=== PATIENT | male | born 1955 | race Caucasian/White ===

== ENCOUNTER 2019-10-11 15:26 | Inpatient (IN) ==
[2019-10-11] MEDS ORDERED: metroNIDAZOLE INJ 500 MG in PREMIX 1 EACH IV STA (16:05)
[2019-10-11] MEDS ORDERED: ONDANSETRON 4 MG/2 ML VIAL IV STA (16:05)
[2019-10-11] MEDS ORDERED: SODIUM CHLORIDE 0.9% 1,000 ML IV STA (16:05)
[2019-10-11] MEDS ORDERED: PANTOPRAZOLE 40 MG VIAL IV STA (16:05)
[2019-10-11] MEDS ORDERED: METOCLOPRAMIDE 10 MG/2 ML VIAL IV STA (16:05)
[2019-10-11] MEDS ORDERED: DICYCLOMINE 20 MG/2 ML AMP IM ONE (16:05)
[2019-10-11 16:14] LABS: Basophils % 0.1 % (0.0-0.8); Hematocrit 46.8 VOL% (42.0-52.0); Hemoglobin 15.8 GM/DL (14.0-18.0); Immature Granulocytes % 3.5 %; Immature Granulocytes Absolute 0.93 #; Lymphocytes # 1.2 10*3/uL (1.4-4.0); Lymphocytes % 4.3 % (21.2-54.2); Mean Corpuscular HGB Conc 33.8 GM/DL (32-36); Mean Corpuscular Volume 90.7 FL (87-102); Mean Platelet Volume 9.3 FL (9.6-12.0); Neutrophils % 83.1 % (38.7-73.9); Platelet Count 333 T/CUMM (130-400); Red Blood Count 5.16 MC/CUMM (3.8-5.5); Red Cell Distribution Width 13.3 % (9.3-17.3); White Blood Count 26.9 T/CUMM (4-12)
[2019-10-11 16:23] LABS: INR 1.2; PT Patient Result 12.2 SECS (9.8-11.9); Partial Thromboplastin Time 29.6 SECS (23.9-33.8)
[2019-10-11] MEDS ORDERED: cefTRIAXone 2,000 MG in SODIUM CHLORIDE 0.9% 100 ML IV ONE (16:33)
[2019-10-11] MEDS ORDERED: LEVOFLOXACIN INJ 750 MG in PREMIX 1 EACH IV STA (16:34)
[2019-10-11 16:35] LABS: Band Neutrophils 2 % (0-10); Lymphocytes 6 % (20-55); Platelet Estimate Adequate; Segmented Neutrophils 82 % (50-85); Total Cells Counted 100
[2019-10-11 16:37] LABS: Apearance,Urine CLEAR (Clear); Bilirubin,Urine Small mg/dL (Negative); Blood, Urine Negative (Negative); Glucose,Urine (UA) Negative (Negative); Ketones,Urine 20 mg/dL (Negative); Mucus,Urine Many /LPF (Occasional); Nitrite,Urine Negative (Negative); Protein,Urine 100 MG/DL; RBC,Urine 13 /HPF (0-4); Squamous Epithelial Cell,Urine Occasional /HPF (0-10); Urine Color Yellow (Yellow); Urine Specific Gravity 1.035 (1.001-1.035); WBC,Urine 4 /HPF (0-6)
[2019-10-11 16:53] LABS: Alanine Aminotransferase 36 U/L (16-61); Albumin 2.6 G/DL (3.4-5.0); Alkaline Phosphatase 152 U/L (45-117); Amylase 20 U/L (25-115); Aspartate Amino Transferase 29 U/L (0-37); Blood Urea Nitrogen 25 MG/DL (7-18); Calcium 8.7 MG/DL (8.5-10.1); Estimated Glom Filtration Rate 59 ML/MIN; Glucose 135 MG/DL (74-106); Osmolality,Calculated 267.7 MOS/KG (273-304); Total Protein 7.7 G/DL (6.4-8.3); Troponin I < 0.015 NG/ML (0.00-0.045)
[2019-10-11] MEDS ORDERED: GLUCAGON 1 MG VIAL IM PRN (18:00)
[2019-10-11] MEDS ORDERED: DEXTROSE 10% 250 ML BAG IV PRN (18:00)
[2019-10-11] MEDS ORDERED: ONDANSETRON 4 MG/2 ML VIAL IV PRN (18:00)
[2019-10-11] MEDS ORDERED: MORPHINE 4 MG/1 ML VIAL IV PRN (18:00)
[2019-10-11] MEDS ORDERED: MAGNESIUM SULF RIDER 4 GM in PREMIX 1 EACH IV PRN (18:03)
[2019-10-11] MEDS ORDERED: MAGNESIUM SULF RIDER 2 GM in PREMIX 1 EACH IV PRN (18:03)
[2019-10-11] MEDS ORDERED: diphenhydrAMINE 50 MG/1 ML VIAL ONE (18:28)
[2019-10-11] MEDS ORDERED: methylPREDNISolone SOD SUC 125 MG/2 ML VIAL ONE (18:28)
[2019-10-11] MEDS ORDERED: FAMOTIDINE 20 MG/2 ML VIAL IV ONE (18:29)
[2019-10-11] MEDS ORDERED: diphenhydrAMINE 50 MG/1 ML VIAL IV STA (18:39)
[2019-10-11] MEDS ORDERED: FAMOTIDINE 20 MG/2 ML VIAL IV STA (18:39)
[2019-10-11] MEDS ORDERED: methylPREDNISolone SOD SUC 125 MG/2 ML VIAL IV STA (18:40)
[2019-10-11] MEDS: SODIUM CHLORIDE 0.9% 1,000 ML IV SCH (22:40)
[2019-10-11] MEDS: ENOXAPARIN 40 MG/0.4 ML SYRINGE SUBCUT SCH (22:40)
[2019-10-11] MEDS: VANCOMYCIN 50 MG/ML 60 ML/BOTTLE PO SCH (23:59)
[2019-10-12 04:50] LABS: Basophils # 0.1 10*3/uL (0.0-0.2); Basophils % 0.7 % (0.0-0.8); Hematocrit 41.2 VOL% (42.0-52.0); Hemoglobin 14.3 GM/DL (14.0-18.0); Immature Granulocytes % 1.9 %; Immature Granulocytes Absolute 0.36 #; Lymphocytes # 0.8 10*3/uL (1.4-4.0); Lymphocytes % 3.9 % (21.2-54.2); Mean Corpuscular HGB Conc 34.7 GM/DL (32-36); Mean Corpuscular Volume 88.6 FL (87-102); Mean Platelet Volume 9.5 FL (9.6-12.0); Monocytes % 3.5 % (1.7-12.7); Platelet Count 279 T/CUMM (130-400); Red Blood Count 4.65 MC/CUMM (3.8-5.5); Red Cell Distribution Width 13.3 % (9.3-17.3); White Blood Count 19.2 T/CUMM (4-12)
[2019-10-12 05:14] LABS: Albumin 2.3 G/DL (3.4-5.0); Bilirubin,Total 0.7 MG/DL (0.2-1.0); Calcium 7.9 MG/DL (8.5-10.1); Osmolality,Calculated 272.4 MOS/KG (273-304); Risk Ratio 7.63; Thyroid Stimulating Hormone 0.389 uIU/ml (0.358-3.74); Total Protein 5.9 G/DL (6.4-8.3); VLDL CHOLESTEROL 42.8 MG/DL
[2019-10-12 05:32] LABS: Band Neutrophils 1 % (0-10); Lymphocytes 4 % (20-55); Platelet Estimate Adequate; Segmented Neutrophils 91 % (50-85); Total Cells Counted 100
[2019-10-12] MEDS: VANCOMYCIN 50 MG/ML 60 ML/BOTTLE PO SCH ×4 (05:54→23:27)
[2019-10-12] MEDS: SODIUM CHLORIDE 0.9% 1,000 ML IV SCH ×3 (06:53→22:37)
[2019-10-12] MEDS: CETIRIZINE 10 MG TABLET PO SCH (09:33)
[2019-10-12] MEDS: LOSARTAN 25 MG TABLET PO SCH (09:33)
[2019-10-12] MEDS: PANTOPRAZOLE 40 MG TABLET PO SCH (09:33)
[2019-10-12] MEDS: MONTELUKAST 10 MG TABLET PO SCH (09:33)
[2019-10-12] MEDS: ZALEPLON 5 MG CAPSULE PO SCH (21:15)
[2019-10-12] MEDS: cloNIDine 0.1 MG TABLET PO PRN (21:15)
[2019-10-12] MEDS: ENOXAPARIN 40 MG/0.4 ML SYRINGE SUBCUT SCH (21:16)
[2019-10-12] MEDS: ACETAMINOPHEN 325 MG TABLET PO PRN (23:26)
[2019-10-13] MEDS: SODIUM CHLORIDE 0.9% 1,000 ML IV SCH ×3 (02:16→20:32)
[2019-10-13] MEDS: ACETAMINOPHEN 325 MG TABLET PO PRN ×3 (04:05→21:03)
[2019-10-13 05:33] LABS: Basophils # 0.1 10*3/uL (0.0-0.2); Basophils % 0.5 % (0.0-0.8); Hemoglobin 13.7 GM/DL (14.0-18.0); Immature Granulocytes % 1.6 %; Lymphocytes # 0.9 10*3/uL (1.4-4.0); Lymphocytes % 4.9 % (21.2-54.2); Mean Corpuscular HGB Conc 34.3 GM/DL (32-36); Mean Corpuscular Volume 89.1 FL (87-102); Mean Platelet Volume 9.1 FL (9.6-12.0); Monocytes % 9.2 % (1.7-12.7); Neutrophils % 83.8 % (38.7-73.9); Platelet Count 308 T/CUMM (130-400); Red Blood Count 4.49 MC/CUMM (3.8-5.5); Red Cell Distribution Width 13.5 % (9.3-17.3); White Blood Count 18.8 T/CUMM (4-12)
[2019-10-13] MEDS: VANCOMYCIN 50 MG/ML 60 ML/BOTTLE PO SCH ×3 (05:37→18:35)
[2019-10-13 05:47] LABS: Bilirubin,Total 1.7 MG/DL (0.2-1.0); Calcium 7.8 MG/DL (8.5-10.1); Osmolality,Calculated 280.7 MOS/KG (273-304); Total Protein 5.8 G/DL (6.4-8.3)
[2019-10-13 06:19] LABS: Band Neutrophils 2 % (0-10); Eosinophils 1 % (0-10); Lymphocytes 8 % (20-55); Platelet Estimate Adequate; Segmented Neutrophils 81 % (50-85); Total Cells Counted 100
[2019-10-13] MEDS ORDERED: SIMETHICONE CHEW 125 MG TABLET PO PRN (08:36)
[2019-10-13] MEDS: LOSARTAN 25 MG TABLET PO SCH (08:58)
[2019-10-13] MEDS: CETIRIZINE 10 MG TABLET PO SCH (09:08)
[2019-10-13] MEDS: MONTELUKAST 10 MG TABLET PO SCH (09:08)
[2019-10-13] MEDS: cloNIDine 0.1 MG TABLET PO PRN (09:08)
[2019-10-13] MEDS: PANTOPRAZOLE 40 MG TABLET PO SCH (09:08)
[2019-10-13] MEDS ORDERED: DICYCLOMINE 20 MG/2 ML AMP IM ONE (09:25)
[2019-10-13] MEDS: POTASSIUM CHLORIDE 20 MEQ TABLET PO PRN ×3 (12:33→16:28)
[2019-10-13] MEDS ORDERED: cloNIDine 0.1 MG TABLET PO PRN (12:54)
[2019-10-13] MEDS ORDERED: DICYCLOMINE 20 MG/2 ML AMP IM PRN (14:50)
[2019-10-13] MEDS: ZALEPLON 5 MG CAPSULE PO SCH (21:03)
[2019-10-13] MEDS: ENOXAPARIN 40 MG/0.4 ML SYRINGE SUBCUT SCH (21:04)
[2019-10-13] MEDS: cloNIDine 0.1 MG TABLET PO SCH (21:04)
[2019-10-14] MEDS: VANCOMYCIN 50 MG/ML 60 ML/BOTTLE PO SCH ×5 (01:14→23:34)
[2019-10-14] MEDS: ACETAMINOPHEN 325 MG TABLET PO PRN ×4 (01:14→21:59)
[2019-10-14] MEDS: SODIUM CHLORIDE 0.9% 1,000 ML IV SCH ×2 (05:53→15:37)
[2019-10-14 06:10] LABS: Basophils # 0.1 10*3/uL (0.0-0.2); Basophils % 0.4 % (0.0-0.8); Eosinophils # 0.1 10*3/uL (0.0-0.87); Eosinophils % 0.4 % (0.00-10.9); Hematocrit 40.5 VOL% (42.0-52.0); Hemoglobin 13.6 GM/DL (14.0-18.0); Immature Granulocytes % 2.3 %; Immature Granulocytes Absolute 0.31 #; Lymphocytes # 0.9 10*3/uL (1.4-4.0); Lymphocytes % 6.7 % (21.2-54.2); Mean Corpuscular HGB Conc 33.6 GM/DL (32-36); Mean Corpuscular Volume 90.4 FL (87-102); Mean Platelet Volume 9.4 FL (9.6-12.0); Monocytes % 11.6 % (1.7-12.7); Neutrophils % 78.6 % (38.7-73.9); Platelet Count 314 T/CUMM (130-400); Red Blood Count 4.48 MC/CUMM (3.8-5.5); Red Cell Distribution Width 13.8 % (9.3-17.3); White Blood Count 13.5 T/CUMM (4-12)
[2019-10-14 06:44] LABS: Bilirubin,Total 3.3 MG/DL (0.2-1.0); Calcium 7.9 MG/DL (8.5-10.1); Osmolality,Calculated 277.7 MOS/KG (273-304); Total Protein 5.8 G/DL (6.4-8.3)
[2019-10-14] MEDS: MONTELUKAST 10 MG TABLET PO SCH (08:27)
[2019-10-14] MEDS: PANTOPRAZOLE 40 MG TABLET PO SCH (08:28)
[2019-10-14] MEDS: CETIRIZINE 10 MG TABLET PO SCH (08:28)
[2019-10-14] MEDS: cloNIDine 0.1 MG TABLET PO SCH ×2 (08:28→22:00)
[2019-10-14] MEDS: LOSARTAN 25 MG TABLET PO SCH (08:28)
[2019-10-14 11:51] LABS: Band Neutrophils 4 % (0-10); Lymphocytes 8 % (20-55); Segmented Neutrophils 76 % (50-85); Total Cells Counted 100
[2019-10-14 11:52] LABS: Platelet Estimate Normal; Polychromasia Slight
[2019-10-14] MEDS: DICYCLOMINE 10 MG CAPSULE PO PRN ×2 (14:18→21:58)
[2019-10-14] MEDS: ZALEPLON 5 MG CAPSULE PO SCH (21:58)
[2019-10-14] MEDS: ENOXAPARIN 40 MG/0.4 ML SYRINGE SUBCUT SCH (21:58)
[2019-10-15 03:41] LABS: Basophils # 0.1 10*3/uL (0.0-0.2); Basophils % 0.6 % (0.0-0.8); Eosinophils # 0.2 10*3/uL (0.0-0.87); Eosinophils % 2.2 % (0.00-10.9); Hematocrit 38.8 VOL% (42.0-52.0); Immature Granulocytes % 2.8 %; Lymphocytes # 1.3 10*3/uL (1.4-4.0); Lymphocytes % 12.1 % (21.2-54.2); Mean Corpuscular HGB Conc 33.5 GM/DL (32-36); Mean Corpuscular Volume 91.5 FL (87-102); Mean Platelet Volume 9.2 FL (9.6-12.0); Monocytes % 14.8 % (1.7-12.7); Neutrophils % 67.5 % (38.7-73.9); Platelet Count 309 T/CUMM (130-400); Red Blood Count 4.24 MC/CUMM (3.8-5.5); Red Cell Distribution Width 13.9 % (9.3-17.3); White Blood Count 10.6 T/CUMM (4-12)
[2019-10-15 04:03] LABS: Albumin 1.9 G/DL (3.4-5.0); Bilirubin,Total 1.8 MG/DL (0.2-1.0); Calcium 7.7 MG/DL (8.5-10.1); Total Protein 5.4 G/DL (6.4-8.3)
[2019-10-15 05:04] LABS: Band Neutrophils 2 % (0-10); Eosinophils 6 % (0-10); Lymphocytes 13 % (20-55); Segmented Neutrophils 68 % (50-85)
[2019-10-15 05:05] LABS: Platelet Estimate Normal; Total Cells Counted 100
[2019-10-15] MEDS: VANCOMYCIN 50 MG/ML 60 ML/BOTTLE PO SCH ×3 (05:35→19:51)
[2019-10-15] MEDS: MONTELUKAST 10 MG TABLET PO SCH (08:24)
[2019-10-15] MEDS: cloNIDine 0.1 MG TABLET PO SCH ×2 (08:24→21:09)
[2019-10-15] MEDS: CETIRIZINE 10 MG TABLET PO SCH (08:24)
[2019-10-15] MEDS: LOSARTAN 25 MG TABLET PO SCH (08:24)
[2019-10-15] MEDS: PANTOPRAZOLE 40 MG TABLET PO SCH (08:24)
[2019-10-15] MEDS: DICYCLOMINE 10 MG CAPSULE PO PRN ×2 (08:35→21:10)
[2019-10-15] MEDS: ZALEPLON 5 MG CAPSULE PO SCH (21:09)
[2019-10-15] MEDS: ACETAMINOPHEN 325 MG TABLET PO PRN (21:09)
[2019-10-15] MEDS: ENOXAPARIN 40 MG/0.4 ML SYRINGE SUBCUT SCH (21:10)
[2019-10-16] MEDS: VANCOMYCIN 50 MG/ML 60 ML/BOTTLE PO SCH ×2 (00:48→06:14)
[2019-10-16 05:41] LABS: Basophils # 0.1 10*3/uL (0.0-0.2); Eosinophils # 0.3 10*3/uL (0.0-0.87); Eosinophils % 3.8 % (0.00-10.9); Hematocrit 37.8 VOL% (42.0-52.0); Hemoglobin 12.8 GM/DL (14.0-18.0); Immature Granulocytes % 3.8 %; Immature Granulocytes Absolute 0.33 #; Lymphocytes # 1.2 10*3/uL (1.4-4.0); Lymphocytes % 14.1 % (21.2-54.2); Mean Corpuscular HGB Conc 33.9 GM/DL (32-36); Mean Corpuscular Volume 90.6 FL (87-102); Mean Platelet Volume 9.1 FL (9.6-12.0); Monocytes % 13.1 % (1.7-12.7); Neutrophils % 64.2 % (38.7-73.9); Platelet Count 379 T/CUMM (130-400); Red Blood Count 4.17 MC/CUMM (3.8-5.5); Red Cell Distribution Width 13.7 % (9.3-17.3); White Blood Count 8.8 T/CUMM (4-12)
[2019-10-16 06:04] LABS: Albumin 1.8 G/DL (3.4-5.0); Bilirubin,Total 1.4 MG/DL (0.2-1.0); Calcium 7.8 MG/DL (8.5-10.1); Osmolality,Calculated 269.1 MOS/KG (273-304); Total Protein 5.2 G/DL (6.4-8.3)
[2019-10-16 06:10] LABS: Band Neutrophils 2 % (0-10); Eosinophils 5 % (0-10); Hypochromasia 1+; Lymphocytes 8 % (20-55); Platelet Estimate Adequate; Segmented Neutrophils 78 % (50-85); Total Cells Counted 100
[2019-10-16] MEDS: POTASSIUM CHLORIDE 20 MEQ TABLET PO PRN ×2 (07:50→10:17)
[2019-10-16 08:43] VITALS: BP 134/71
[2019-10-16] MEDS: SODIUM CHLORIDE 0.9% 1,000 ML IV SCH ×2 (09:56→09:57)
[2019-10-16] MEDS: LOSARTAN 25 MG TABLET PO SCH (10:16)
[2019-10-16] MEDS: cloNIDine 0.1 MG TABLET PO SCH (10:16)
[2019-10-16] MEDS: MONTELUKAST 10 MG TABLET PO SCH (10:17)
[2019-10-16] MEDS: PANTOPRAZOLE 40 MG TABLET PO SCH (10:17)
[2019-10-16] MEDS: CETIRIZINE 10 MG TABLET PO SCH (10:17)
== END 2019-10-16 11:57 | disposition home or self-care (01) | DRG 372 ==
LOC: N.EDINP 15:26 → N.ED 15:26 → N.EDINP 19:47 → N.TELEN 20:07 → SUATTDRO 10-13 10:36
PROVIDERS: ADMIT Internal Medicine; ATTEND Internal Medicine Geriatric Medicine